=== PATIENT | female | born 1965 | race Two or more races ===

== ENCOUNTER 2024-03-23 12:43 | Emergency (ER) | payer OTHER ==
[~2024-03-23] VITALS: Ht 162.6 cm; Wt 115.0 kg
[2024-03-23 12:50] VITALS: TEMP 98.3
[2024-03-23] MEDS ORDERED: METH-659 PO (14:04)
[2024-03-23] MEDS ORDERED: ACET-66 PO (14:04)
[2024-03-23] MEDS ORDERED: IBUP-1554 PO (14:04)
[2024-03-23 14:33] VITALS: BP 135/90; PULSE 70; RESP 16; O2SAT 97
== END 2024-03-23 14:39 | disposition home or self-care (01) ==
LOC: EMS 12:43
DX: G89.29 Other chronic pain (principal); M54.50 Low back pain, unspecified; I10 Essential (primary) hypertension
CPT/HCPCS: 99283; Z7502